=== PATIENT | male | born 1950 | race American Indian/Alaskan Native ===

== ENCOUNTER 2017-01-22 11:09 | Outpatient (CLI) | payer OTHER ==
--- NOTE | 2017-01-22 11:59 | XRay Report ---
Lumbar spine: Back pain. AP and lateral views demonstrate diffuse mild anterior spondylosis. Minimal anterior wedging identified at L2. There is a rotational dextroscoliosis of the mid and lower lumbar spine. Evaluation interspaces is somewhat limited due to this scoliosis however the interspaces appear relatively preserved except for mild narrowing on the left at L2-3 and diffusely at L5-S1. The bones appear well mineralized. No prior exam for comparison. Impression: 1. Generalized spondylosis and rotational dextroscoliosis. 2. Significant discogenic narrowing and sclerosis at L5-S1.
== END 2017-01-22 11:10 | disposition home or self-care (01) ==
LOC: SPVIMAG 11:09
DX: M47.896 Other spondylosis, lumbar region (principal); M41.86 Other forms of scoliosis, lumbar region
CPT/HCPCS: 72100

== ENCOUNTER 2017-07-29 12:55 | Outpatient (CLI) | payer OTHER ==
--- NOTE | 2017-07-30 00:09 | XRay Report ---
FINAL REPORT EXAM: XR SHOULDER BILAT 2+V HISTORY: BILATERAL SHOULDER PAIN TECHNIQUE: Two views of each shoulder were obtained. FINDINGS: On the left side the AC joint and glenohumeral joint appear intact. There is subchondral sclerosis of the humeral head. A history of avascular necrosis cannot be excluded. There no evidence of fracture. The soft tissues are well maintained. The right shoulder shows the AC joint and glenoid joint to be intact. There are sclerotic changes of the subchondral bone of the humeral head. A history of avascular necrosis cannot be excluded. There is no evidence of fracture. The soft tissues well maintained. IMPRESSION: Bilateral subchondral sclerotic changes of the humeral heads as described. History of avascular necrosis cannot be excluded. No acute injury.
== END 2017-07-29 12:56 | disposition home or self-care (01) ==
LOC: SPVIMAG 12:55
DX: M25.511 Pain in right shoulder (principal); M25.512 Pain in left shoulder